=== PATIENT | male | born 1990 | race Caucasian/White ===

== ENCOUNTER 2021-08-18 17:11 | Emergency (ER) | payer BC ==
[~2021-08-18] VITALS: Ht 177.8 cm; Wt 90.0 kg
[2021-08-18] MEDS ORDERED: KETOROLAC 15MG/ML VIAL IV ONE (17:45)
[2021-08-18] MEDS ORDERED: HYDROCODONE/ACETAMINOPHEN 10/325MG TABLET PO ONE (18:45)
[2021-08-18] MEDS ORDERED: HYDR-4009 MT (18:51)
[2021-08-18 19:14] VITALS: BP 147/84
== END 2021-08-18 20:46 | disposition home or self-care (01) ==
LOC: ER 17:53
DX: S80.01XA Contusion of right knee, initial encounter (principal); W17.89XA Other fall from one level to another, initial encounter; Y93.89 Activity, other specified; Y92.89 Other specified places as the place of occurrence of the external cause; Y99.8 Other external cause status
CPT/HCPCS: 73562; 96374; 99283; J1885; L1830; Z7610